=== PATIENT | female | born 1980 | race Caucasian/White ===

== ENCOUNTER 2019-03-01 10:04 | Emergency (ER) | payer BC, OTHER ==
[~2019-03-01] VITALS: Ht 162.6 cm; Wt 77.1 kg
[2019-03-01 10:14] VITALS: BP 129/89
== END 2019-03-01 10:40 | disposition home or self-care (01) ==
LOC: ER 10:05
DX: L50.9 Urticaria, unspecified (principal); E03.9 Hypothyroidism, unspecified